=== PATIENT | female | born 1955 | race Caucasian/White ===

== ENCOUNTER 2016-07-20 11:47 | Day surgery (SDC) | payer OTHER ==
[~2016-07-20] VITALS: Ht 149.9 cm; Wt 75.1 kg
[~2016-07-20 11:47] MED LIST: ASPI81TA50 PO; LISI10TA2 PO; METO-448; NAPR-685 PO; NIT3 SL; OMEP20CA16 PO
[2016-07-20 12:21] VITALS: Ht 149.9 cm; Wt 75.1 kg
[2016-07-20] MEDS ORDERED: MIDAZOLAM 1 MG/ML 2 ML INJ ONE (13:23)
[2016-07-20] MEDS ORDERED: LIDOCAINE 2% (SDV) 5 ML INJ ONE (13:23)
[2016-07-20] MEDS ORDERED: PROPOFOL 20 ML ONE (13:23)
[2016-07-20 13:35] VITALS: BP 150/67; PULSE 48; RESP 20
[2016-07-20 15:15] VITALS: BP 140/61; PULSE 48; RESP 18
--- NOTE | 2016-07-20 17:23 | GILP ---
DATE OF PROCEDURE: 07/20/2016 NAME OF PROCEDURE: Esophagogastroduodenoscopy with biopsies. SURGEON: Jeanmarie Carrillo MD. HISTORY AND INDICATIONS: The patient is being evaluated for abdominal pain. PREMEDICATION: Monitored anesthesia care by anesthesiologist. INSTRUMENT USED: Olympus panendoscope. TECHNIQUE: After informed consent, with the patient/relatives understanding the procedure, its indic ations, potential risks and complications, including but not limited to: allergic reaction, bleeding , perforation or infection, and after all pertinent questions were answered to the patients satisfac tion, the patient/relatives signed witnessed informed consent. Following this, premedication was administered slowly IV push under careful cardiovascular and respi ratory monitoring with pulse oximetry, automatic blood pressure and equipment hire manager. Once the sedative effect was achieved the patient was place in the left lateral decubitus, the panen doscope was introduced and advanced under visual control. Careful examination of the upper gastrointestinal tract, both on insertion as well as withdrawal of the instrument disclosed the following findings: ESOPHAGUS: The mucosa of the entire esophagus appears within normal limits. There is no evidence of esophagitis, varices, neoplasm or stricture. No hiatal hernia identified. STOMACH: Upon entrance to the stomach air was insufflated, the gastric plasencia distended normally. The re is erythema and edema of the mucosa of a moderate degree. Biopsies were obtained to rule out H. pylori infection. PYLORUS: The pylorus appears patent and within normal limits, with no evidence of gastric outlet obs truction. DUODENUM: The duodenal mucosa was carefully examined in the duodenal bulb as well as the second port ion of the duodenum and appears unremarkable with no evidence of duodenitis, ulcer or neoplasm. The instrument was then withdrawn, the patient tolerated the procedure well and was transfer out of the endoscopy suite awake, and in good condition to continue recovery under observation IMPRESSION: Moderate gastritis, rule out Helicobacter pylori infection. Biopsies were obtained. PLAN: The patient will be treated with PPIs. Pathology will be reviewed as soon as it is available . Further recommendations will depend upon the patient's clinical course. Dictated By: JEANMARIE MACK Conf#: [id number] DID#: [id number]
== END 2016-07-20 16:16 | disposition home or self-care (01) ==
LOC: GIL 11:47
PROVIDERS: ATTEND Internal Medicine Gastroenterology
DX: K29.70 Gastritis, unspecified, without bleeding (principal); I10 Essential (primary) hypertension; E66.9 Obesity, unspecified; Z68.33 Body mass index [BMI] 33.0-33.9, adult
CPT/HCPCS: 43239; 88305; 88312; J2250; Z7610

== ENCOUNTER → 2018-09-01 | Outpatient (CLI) | payer OTHER ==
[~2018-09-01] MED LIST changes: -NAPR-685 PO; -NIT3 SL
== END | disposition home or self-care (01) ==
LOC: LAB 12:37
PROVIDERS: ATTEND Internal Medicine
DX: R07.9 Chest pain, unspecified (principal)
CPT/HCPCS: 80048

== ENCOUNTER → 2018-09-18 | Outpatient (CLI) | payer OTHER ==
[~2018-09-18] MED LIST changes: +IOHEXOL 100 ML ONE; +SOD CHLORIDE 0.9% 100 ML ONE
[2018-09-18 12:29] VITALS: BP 136/64; PULSE 54; RESP 18
== END | disposition home or self-care (01) ==
LOC: C/S 09:59
PROVIDERS: ATTEND Internal Medicine
DX: R07.9 Chest pain, unspecified (principal); I51.7 Cardiomegaly; I27.20 Pulmonary hypertension, unspecified
CPT/HCPCS: 75571; 75574; Q9967; Z7610